=== PATIENT | female | born 1990 | race Caucasian/White ===

== ENCOUNTER 2017-10-11 09:35 | Emergency (ER) | payer OTHER ==
[~2017-10-11] VITALS: Ht 165.1 cm; Wt 79.4 kg
[~2017-10-11 09:35] MED LIST: AMOXICILLIN 50500 MG PO; ANTIVERT25 MG PO; AUGMENTIN 500-1 EACH PO; CHANTIX0.5 MG; HYDROCODONE-AP1 EAC6 PO; IBUPROFEN 800800 M1 PO; IBUPROFEN 800800 MG PO; IMITREX 50 MG T50 MG PO; LITHIUM CARBON300 M7 PO; MEDROLDOSEPACK PO; NOHOMEMEDICATIONS; PROMETHAZINE-D120 ML PO; TOPAMAX 100 MG100 MG PO; TRILEPTAL150 MG; ZANTAC 150MG T150 M1 PO
[2017-10-11 09:41] VITALS: BP 121/82
[2017-10-11] MEDS ORDERED: OMEPRAZOLE 20 M20 M1 PO (09:43)
[2017-10-11] MEDS ORDERED: KEFLEX500 M1 PO (10:07)
== END 2017-10-11 10:19 | disposition home or self-care (01) ==
LOC: M.ERS 09:35
DX: T16.1XXA Foreign body in right ear, initial encounter (principal); F31.9 Bipolar disorder, unspecified; K21.9 Gastro-esophageal reflux disease without esophagitis; F17.210 Nicotine dependence, cigarettes, uncomplicated; Z88.1 Allergy status to other antibiotic agents; Z88.5 Allergy status to narcotic agent; Z90.49 Acquired absence of other specified parts of digestive tract; X58.XXXA Exposure to other specified factors, initial encounter; Y93.89 Activity, other specified; Y92.89 Other specified places as the place of occurrence of the external cause; Y99.8 Other external cause status

== ENCOUNTER 2019-04-21 21:09 | Emergency (ER) | payer OTHER ==
[~2019-04-21] VITALS: Ht 165.1 cm; Wt 90.7 kg
[~2019-04-21 21:09] MED LIST changes: +KEFLEX500 M1 PO; +OMEPRAZOLE 20 M20 M1 PO
[2019-04-21 22:02] LABS: ABSOLUTE BASOPHILS 0.1 thou/uL (0.0-0.2); ABSOLUTE EOSINOPHILS 0.2 thou/uL (0.0-0.7); ABSOLUTE LYMPHOCYTES 3.2 thou/uL (0.8-5.3); ABSOLUTE MONOCYTES 0.9 thou/uL (0.0-1.2); ABSOLUTE NEUTROPHILS 7.5 thou/uL (1.6-8.1); EOSINOPHILS 1.7 %; HEMATOCRIT 42.2 % (37.0-47.0); HEMOGLOBIN 14.1 gm/dL (12.0-15.0); LYMPHOCYTES 26.6 %; MCH 30.1 pg (26.0-34.0); MCHC 33.3 g/dL (28.0-37.0); MCV 90.3 fL (80.0-100.0); MONOCYTES 7.2 %; MPV 9.4 fl. (7.2-11.1); NUCLEATED RBCS 0 /100WBC; PLATELET COUNT* 284 thou/uL (150-400); POLYS 63.5 %; RBC 4.68 mil/uL (4.20-5.00); RDW-CV 12.5 % (10.5-14.5); WBC 11.9 thou/uL (4.0-11.0)
[2019-04-21] MEDS ORDERED: VENTOLIN HFA 1818 GM INH (22:44)
[2019-04-21] MEDS ORDERED: DOXYCYCLINE HY100 MG PO (22:44)
[2019-04-21] MEDS ORDERED: PREDNISONE50 MG PO (22:44)
[2019-04-21 22:55] VITALS: BP 117/72
--- NOTE | 2019-04-24 08:31 | EKG ---
[place] [address] ELECTROCARDIOGRAM REPORT Name: SONNY PEGUERO [id number] Admission: 04/21/19 Attend Phys: Discharge: 04/21/19 Date of : 86 Report #: [id number] THIS REPORT FOR: //name// [facility] ED Test Date: 2019-04-21 Test Time: 21:32:01 Pat Name: SONNY PEGUERO Department: Room: Gender: F Chicken Vaccinator: : 1990 Requested By: Antwan Osei Order Number: [id number] MD: Espinoza Teixeira Measurements Intervals [place] Rate: 76 P: 42 MN: 139 QRS: 40 QRSD: 121 T: 43 QT: 407 QTc: 458 Interpretive Statements Sinus rhythm IVCD, consider atypical RBBB Compared to ECG 04/02/2017 18:31:47 no change Electronically Signed On 04-24-2019 8:31:00 [employer] by Espinoza Teixeira [email or web address] <ELECTRONICALLY SIGNED> By: Espinoza Teixeira MD, [facility] 04/24/19 08 31 31 Espinoza Teixeira MD, FACC /EPI
== END 2019-04-21 22:55 | disposition home or self-care (01) ==
LOC: M.ERS 21:09
PROVIDERS: Emergency Medicine Emergency Medical Services
DX: J18.9 Pneumonia, unspecified organism (principal); K21.9 Gastro-esophageal reflux disease without esophagitis; J45.909 Unspecified asthma, uncomplicated; Z90.49 Acquired absence of other specified parts of digestive tract; F41.9 Anxiety disorder, unspecified; Z98.890 Other specified postprocedural states; Z88.5 Allergy status to narcotic agent; Z88.1 Allergy status to other antibiotic agents